=== PATIENT | male | born 1980 | race Caucasian/White ===

== ENCOUNTER 2017-02-01 10:11 | Inpatient (IN) | payer OTHER ==
[~2017-02-01] VITALS: Ht 175.3 cm; Wt 78.1 kg
[~2017-02-01 10:11] MED LIST: ATARAX,VISTARIL50 MG PO; ATIVAN1 MG PO; LEXAPRO20 MG PO; ZOFRAN 4 MG ED2 TAB PO
--- NOTE | 2017-02-01 11:10 | NUR ---
A 36, admitted to , under the services of JULISSA Jovel DO with a diagnosis of ALCOHOL WITHDRAWAL. Chief complaint is ALCOHOL WITHDRAWAL. Patient arrived via ambulatory from [place]. Monitor applied. Initial assessment completed. Vital signs taken and recorded. JULISSA JOVEL DO notified of admission to the unit. Orders received. See assessment for past medical history, medications and allergies. Patient and/or family oriented to unit. [facility]. Clothing/patient valuable form completed. RAFAEL BRODY
[2017-02-01] MEDS ORDERED: PAXIL40 M1 PO (11:20)
[2017-02-01 11:24] VITALS: BP 111/76
--- NOTE | 2017-02-01 11:40 | NUR ---
DR SAUNDERS AND DR KERMIT HANKINS BOTH NOTIFIED OF PT ON FLOOR AND NEEDING ADMITTING ORDERS
[2017-02-01 12:27] LABS: BASO # 0.1 10*3/uL (0.0-0.1); BASO % 0.7 % (0.0-1.0); EOS # 0.1 10*3/uL (0.0-0.4); EOS % 1.3 % (1.0-4.0); HEMOGLOBIN 14.4 g/dl (14.0-18.0); LYMPH # 3.2 10*3/uL (1.3-4.4); LYMPH % 32.4 % (27.0-41.0); MEAN CELL VOLUME 93.1 fl (80.0-94.0); MEAN CORPUSCULAR HGB 31.9 pg (27.0-31.0); MEAN CORPUSCULAR HGB CONC 34.3 g/dl (33.0-37.0); MEAN PLATELET VOLUME 8.9 fl (9.6-12.3); MONO # 0.8 10*3/uL (0.1-1.0); MONO % 8.3 % (3.0-9.0); NEUT # 5.7 10*3/uL (2.3-7.9); NEUT % 56.9 % (47.0-73.0); PLATELET COUNT AUTOMATED 276 10*3/uL (130-400); RED BLOOD COUNT 4.51 10*6/uL (4.50-5.90); RED CELL DISTRI WIDTH 11.9 % (0-14.5)
--- NOTE | 2017-02-01 12:29 | NUR ---
IV started right antecubital with #20 angiocath after 2 attempts. The IV site was prepped with Chloraprep. Heparin lock attached. Sterile dressing applied. Patient tolerated precedure well. Procedure performed according to [facility] policy & procedure. RAFAEL BRODY
[2017-02-01 12:43] LABS: ALBUMIN 3.7 gm/dl (3.1-4.5); ALKALINE PHOSPHATASE 86 U/L (45-117); BUN 7 mg/dl (7-24); CHLORIDE 103 mmol/L (98-107); CREATININE 0.75 mg/dL (0.70-1.30); POTASSIUM 3.8 mmol/L (3.5-5.1); SGOT/AST 27 IU/L (3-35); SGPT/ALT 33 U/L (12-78); SODIUM 136 mmol/L (136-145); TOTAL PROTEIN 7.3 gm/dL (6.4-8.2)
[2017-02-01 12:44] LABS: ETHYL ALCOHOL < 3.0 mg/dl (<3)
[2017-02-01 13:09] LABS: BILIRUBIN NEGATIVE (NEGATIVE); BLOOD NEGATIVE (NEGATIVE); CLARITY CLEAR (CLEAR); COLOR YELLOW (YELLOW); GLUCOSE NEGATIVE (NEGATIVE); KETONE NEGATIVE (NEGATIVE); LEUKO ESTERASE NEGATIVE (NEGATIVE); NITRITE NEGATIVE (NEGATIVE); PH 7.5 (5.0-9.0); UROBILINOGEN 0.2 E.U./dl (0.2-1.0)
[2017-02-01 13:17] LABS: URINE AMPHETAMINES < 1000 (1000ng/ml); URINE BARBITURATES < 200 (200ng/ml); URINE BENZODIAZEPINES < 200 (200ng/ml); URINE CANNABINOIDS (THC) < 50 (50ng/ml); URINE COCAINE < 300 (300ng/ml); URINE METHADONE < 300 (300ng/ml); URINE OPIATES < 300 (300ng/ml)
[2017-02-01 13:25] LABS: URINE PHENCYCLIDINE < 25 (25ng/ml)
[2017-02-01 13:26] LABS: WBC 0-2 wbc/hpf (0-5)
[2017-02-01 16:00] VITALS: BP 102/54
[2017-02-01 20:00] VITALS: BP 103/57
--- NOTE | 2017-02-01 20:25 | NUR ---
DR. SPARROW NOTIFIED TO COUNTIN PATIENTS HOME MEDICATION. SEE NEW ORDERS.
--- NOTE | 2017-02-01 21:42 | NUR ---
PRN TRAZADONE GIVEN FOR INSOMNIA. WILL MONITOR.
--- NOTE | 2017-02-01 22:20 | NUR ---
TRAZADONE EFFECTIVE. PATIENT ASLEEP WITH RESPIRATIONS >12
[2017-02-02] VITALS: BP 92/46
--- NOTE | 2017-02-02 00:20 | NUR ---
24 HR chart check completed.
--- NOTE | 2017-02-02 00:27 | NUR ---
24 HR chart check completed.
--- NOTE | 2017-02-02 07:59 | NUR ---
PT RESTING IN BED, NO DISTRESS NOTED. WILL MONITOR
[2017-02-02 08:00] VITALS: BP 94/50
--- NOTE | 2017-02-02 11:55 | NUR ---
IV SITE DC'D PER PT REQUEST. OK'D PER DR SAUNDERS AND DR BOLAND
[2017-02-02 12:00] VITALS: BP 108/67
[2017-02-02 16:00] VITALS: BP 106/76
[2017-02-02 20:00] VITALS: BP 109/61
--- NOTE | 2017-02-02 21:00 | NUR ---
RESTING IN BED WATCHING TV, NO DISTRESS NOTED. CALL LIGHT WITHIN REACH
--- NOTE | 2017-02-02 22:30 | NUR ---
Patient displaying withdrawal symptoms, including: irritability, anxiousness, restlessness and agitation. Scheduled/PRN medications provided, SEE EMAR. Will continue to monitor medication effectiveness.
[2017-02-03] VITALS: BP 103/70
--- NOTE | 2017-02-03 | NUR ---
Patient SLEEPING. Responding to scheduled medications with fewer complaints of pain and anxiety. CALL LIGHT WITHIN REACH
--- NOTE | 2017-02-03 02:30 | NUR ---
AWAKE, STATES HE HAD "A BAD DREAM." OFFERED PRN MEDS, DECLINED. REQUESTED AND PROVIDED WITH SNACKS. WILL MONITOR
--- NOTE | 2017-02-03 04:00 | NUR ---
Patient resting. Responding to scheduled medications with fewer complaints of pain and anxiety.
[2017-02-03 08:00] VITALS: BP 115/69
[2017-02-03 12:00] VITALS: BP 101/72
[2017-02-03 16:00] VITALS: BP 111/68
[2017-02-03 20:00] VITALS: BP 110/77
--- NOTE | 2017-02-03 20:30 | NUR ---
Patient resting. Responding to scheduled medications with fewer complaints of pain and anxiety. Close observation will be maintained, vital signs to be monitored q4h.
--- NOTE | 2017-02-03 22:08 | NUR ---
Patient displaying withdrawal symptoms, including: restlessness. PRN medications provided, SEE EMAR. Will continue to monitor medication effectiveness.
[2017-02-04] VITALS: BP 105/70
--- NOTE | 2017-02-04 | NUR ---
Patient SLEEPING. Responding to scheduled medications with fewer complaints of pain and anxiety.
--- NOTE | 2017-02-04 06:00 | NUR ---
SLEPT THROUGHOUT NIGHT WITH NO DISTRESS NOTED. RESPIRATIONS EASY. CALL LIGHT WITHIN REACH. NO VOICED COMPLAINTS THIS SHIFT
[2017-02-04 07:02] LABS: BASO # 0.1 10*3/uL (0.0-0.1); BASO % 0.7 % (0.0-1.0); EOS # 0.2 10*3/uL (0.0-0.4); EOS % 2.1 % (1.0-4.0); HEMATOCRIT 40.3 % (42.0-52.0); HEMOGLOBIN 13.5 g/dl (14.0-18.0); LYMPH # 2.9 10*3/uL (1.3-4.4); LYMPH % 30.8 % (27.0-41.0); MEAN CELL VOLUME 96.6 fl (80.0-94.0); MEAN CORPUSCULAR HGB 32.4 pg (27.0-31.0); MEAN CORPUSCULAR HGB CONC 33.5 g/dl (33.0-37.0); MEAN PLATELET VOLUME 9.5 fl (9.6-12.3); MONO # 0.9 10*3/uL (0.1-1.0); MONO % 9.1 % (3.0-9.0); NEUT # 5.3 10*3/uL (2.3-7.9); NEUT % 56.8 % (47.0-73.0); PLATELET COUNT AUTOMATED 268 10*3/uL (130-400); RED BLOOD COUNT 4.17 10*6/uL (4.50-5.90); WHITE BLOOD COUNT 9.4 10*3/uL (4.8-10.8)
[2017-02-04 07:33] LABS: CREATININE 0.64 mg/dL (0.70-1.30)
[2017-02-04 08:00] VITALS: BP 101/56
--- NOTE | 2017-02-04 09:20 | NUR ---
PT RESTING IN BED, NO DISTRESS NOTED, NO VOICED C/O, WILL MONITOR
[2017-02-04 12:00] VITALS: BP 109/66
[2017-02-04] MEDS ORDERED: TRAZODONE50 MG PO (12:25)
--- NOTE | 2017-02-04 12:48 | NUR ---
Discharge instructions reviewed with patient/family. Patient receptive and verbalizes understanding. Follow-up care arranged. Written instructions given to patient/family. RAFAEL BRODY
== END 2017-02-04 12:49 | disposition home or self-care (01) | DRG 897 ==
LOC: 5E 10:11
PROVIDERS: Registered Nurse; ADMIT Internal Medicine
DX: F10.230 Alcohol dependence with withdrawal, uncomplicated (principal); F32.9 Major depressive disorder, single episode, unspecified; F17.210 Nicotine dependence, cigarettes, uncomplicated; F41.9 Anxiety disorder, unspecified; Z71.6 Tobacco abuse counseling; Z83.6 Family history of other diseases of the respiratory system; Z79.899 Other long term (current) drug therapy